=== PATIENT | female | born 1980 | race American Indian/Alaskan Native ===

== ENCOUNTER 2021-11-30 17:13 | Emergency (ER) | payer OTHER ==
[2021-11-30] MEDS ORDERED: SODIUM CHLORIDE 0.9% IRR 500 ML BOTTLE IR ONE (17:47)
[2021-11-30] MEDS ORDERED: LIDOCAINE (1%) 10 MG/1 ML VIAL 20 ML MDV INFILTRATI ONE (17:48)
[2021-11-30] MEDS ORDERED: ACETAMINOPHEN 500 MG TAB PO ONE (17:51)
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
[2021-11-30 18:45] VITALS: BP 144/98
== END 2021-11-30 18:44 ==
LOC: ED 17:13
DX: S01.411A Laceration without foreign body of right cheek and temporomandibular area, initial encounter (principal); Z86.73 Personal history of transient ischemic attack (TIA), and cerebral infarction without residual deficits; F17.200 Nicotine dependence, unspecified, uncomplicated; Y08.89XA Assault by other specified means, initial encounter; Y93.89 Activity, other specified; Y92.89 Other specified places as the place of occurrence of the external cause; Y99.8 Other external cause status
CPT/HCPCS: 99283

== ENCOUNTER 2021-12-12 00:35 | Emergency (ER) | payer OTHER ==
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
[2021-12-12 03:59] VITALS: BP 147/93
== END 2021-12-12 03:34 | disposition home or self-care (01) ==
LOC: ED 00:35
DX: S01.81XD Laceration without foreign body of other part of head, subsequent encounter (principal); Z86.73 Personal history of transient ischemic attack (TIA), and cerebral infarction without residual deficits; F17.200 Nicotine dependence, unspecified, uncomplicated; X58.XXXD Exposure to other specified factors, subsequent encounter
CPT/HCPCS: 99282